=== PATIENT | male | born 1965 | race Two or more races ===

== ENCOUNTER 2018-11-14 11:56 | Emergency (ER) | payer MEDICAID ==
--- NOTE | 2018-11-14 12:48 | ED Physician Chart ---
ED Chief Complaint/HPI - Patient Information Date Seen:: 11/14/18 Time Seen:: 12:30 Chief Complaint:: bilateral leg pain History of Present Illness:: Patient fell down 3 steps one week ago. He is able to ambulate with use of a cane which he was using before he fell. Allergies:: Allergies Allergy/AdvReac Type Severity Reaction Status Date / Time No Known Allergies Allergy Verified 11/14/18 12:15 Vitals:: Vital Signs - 8 hr 11/14/18 12:21 Temp 98.2 F HR 75 RR 18 BP 149/89 O2 Sat % 97 Historian:: Patient, Family Member ED Review of Systems - Review of Systems General/Constitutional: No fever Skin: No skin lesions Head: No headache ENT: No earache Neck: No neck pain Cardio Vascular: No chest pain Pulmonary: No SOB GI: No nausea, No vomiting G/U: No dysuria Musculoskeletal: Bone or joint pain Psychiatric: No prior psych history, No depression, No anxiety Hematopoietic: No lymphadenopathy Allergic/Immuno: No urticaria Neurological: No syncope ED Past Medical History - Past Medical History Past Medical History: HTN, DM, Other (patient had colon cancer with metastasis to the liver diagnosed one year ago. He last received chemotherapy 6 months ago ) Family History: Diabetes Melitus, HTN Social History: Other (formerly smoked cigarets and drank alcohol) Surgical History: other (resection of colon ca) Medication: Reviewed ED Physical Exam - Physical Examination General/Constitutional: Awake, Alert, No distress Other Gen/Cons comments:: Chronically ill-appearing Head: Atraumatic Eyes: Lids, conjuctiva normal, PERRL Other Skin comments:: Hyperpigmentation of the skin ENMT: External ears, nose nl, Nasal exam nl Other ENMT comments:: 3/4 peridontal disease Neck: No nuchal rigidity Respiratory: Nl effort/Exclusion, Clear to Auscultation, No Wheeze/Rhonchi/Rales Cardio Vascular: RRR, No murmur, gallop, rubs GI: Normal BS's Other GI comments:: Midline surgical scar extending from the epigastrium to the infraumbilical area ; tender liver which extends 5 finger breadths inferior to right costal margin; 10 cm ventral hernia which extends from midline of the epigastrium to right upper quadrant. : No CVA tenderness Other Extremities comments:: 3 out of 4 pretibial pitting edema both lower legs Neuro/Psych: No focal deficits ED Labs/Radiology/EKG Results - Lab Results Results: Laboratory Tests 11/14/18 12:11 POC Glucose 188 H Laboratory Results WBC 6.0 Th/cmm (4.8-10.8) 11/14/18 12:48 RBC 3.74 Mil/cmm (4.30-5.70) L 11/14/18 12:48 Hgb 11.2 gm/dL (12-16) L 11/14/18 12:48 Hct 33.7 % (41.0-60) L 11/14/18 12:48 MCV 90.0 fl (80-99) 11/14/18 12:48 MCH 29.8 pg (26.0-30.0) 11/14/18 12:48 MCHC Differential 33.1 pg (28.0-36.0) 11/14/18 12:48 RDW 14.6 % (11.5-20.0) 11/14/18 12:48 Plt Count 208 Th/cmm (150-400) 11/14/18 12:48 MPV 8.9 fl 11/14/18 12:48 Neutrophils % 68.9 % (40.0-80.0) 11/14/18 12:48 Lymphocytes % 18.8 % (20.0-50.0) L 11/14/18 12:48 Monocytes % 9.1 % (2.0-10.0) 11/14/18 12:48 Eosinophils % 2.8 % (0.0-5.0) 11/14/18 12:48 Basophils % 0.4 % (0.0-2.0) 11/14/18 12:48 PT 9.9 SECONDS (9.5-11.5) 11/14/18 12:48 INR 0.95 (0.5-1.4) 11/14/18 12:48 PTT (Actin FS) 26.3 SECONDS (26.0-38.0) 11/14/18 12:48 Sodium 138 mEq/L (136-145) 11/14/18 12:48 Potassium 3.9 mEq/L (3.5-5.1) 11/14/18 12:48 Chloride 109 mEq/L (98-107) H 11/14/18 12:48 Carbon Dioxide 24.5 mEq/L (21.0-31.0) 11/14/18 12:48 Anion Gap 8.4 (7.0-16.0) 11/14/18 12:48 BUN 15 mg/dL (7-25) 11/14/18 12:48 Creatinine 0.7 mg/dL (0.7-1.3) 11/14/18 12:48 Est GFR ( Amer) > 60.0 ml/min (>90) 11/14/18 12:48 Est GFR (Non-Af Amer) > 60.0 ml/min 11/14/18 12:48 BUN/Creatinine Ratio 21.4 11/14/18 12:48 Glucose 189 mg/dL (70-105) H 11/14/18 12:48 POC Glucose 188 MG/DL (70 - 105) H 11/14/18 12:11 Calcium 7.7 mg/dL (8.6-10.3) L 11/14/18 12:48 - Radiology Results Results: The business systems technician reported no deep vein thrombosis. I gave the patient the choice of remaining here until the radiologist's final report is available or being discharged based on the business systems technician's report. He chose the latter stating that his legs had. been checked out previously for deep vein thrombosis and none were ever found ED Assessment - Assessment General Assessment: Patient is chronically ill with metastatic colon carcinoma but there is no acute problem which requires hospital admission. ED Septic Shock - . Is Septic Shock (SBP<90, OR Lactate>4 mmol\L) present?: No - <6hrs of presentation: Vital Signs: Vital Signs - 8 hr 11/14/18 12:21 Temp 98.2 F HR 75 RR 18 BP 149/89 O2 Sat % 97 ED Reassessment (Disposition) - Reassessment Reassessment Condition:: Unchanged - Diagnosis Diagnosis:: Colon cancer with liver metastasis; contusion lower legs; edema both lower legs - Aftercare/Follow up Instructions Aftercare/Follow-Up Instructions:: Refer to Discharge Instructions - Patient Disposition Discharge/Transfer:: Home Condition at Disposition:: Stable, Unchanged
[2018-11-14 12:53] LABS: % BASOPHILS 0.4 % (0.0-2.0); % EOSINOPHILS 2.8 % (0.0-5.0); % LYMPHOCYTES 18.8 % (20.0-50.0); % MONOCYTES 9.1 % (2.0-10.0); % NEUTROPHILS 68.9 % (40.0-80.0); EOSINOPHILE ABSOLUTE 0.2 Th/cmm (0.1-0.4); HEMATOCRIT 33.7 % (41.0-60); HEMOGLOBIN 11.2 gm/dL (12-16); LYMPHOCYTE ABSOLUTE 1.1 Th/cmm (1.5-3.0); MEAN CORPUSCULAR HEMOGLOBIN 29.8 pg (26.0-30.0); MEAN CORPUSCULAR HGB CONC 33.1 pg (28.0-36.0); MONOCYTE ABSOLUTE 0.5 Th/cmm (0.3-1.0); NEUTROPHILE ABSOLUTE 4.2 Th/cmm (1.8-8.0); PLATELET COUNT 208 Th/cmm (150-400); RED BLOOD COUNT 3.74 Mil/cmm (4.30-5.70); RED CELL DISTRIBUTION WIDTH 14.6 % (11.5-20.0)
[2018-11-14 13:09] LABS: INR 0.95 (0.5-1.4)
[2018-11-14 13:14] LABS: ANION GAP 8.4 (7.0-16.0); BUN - UREA NITROGEN 15 mg/dL (7-25); CALCIUM SERUM 7.7 mg/dL (8.6-10.3); CARBON DIOXIDE 24.5 mEq/L (21.0-31.0); CHLORIDE 109 mEq/L (98-107); CREATININE - SERUM 0.7 mg/dL (0.7-1.3); GFR AFRICAN-AMERICAN > 60.0 ml/min (>90); GFR NON AFRICAN-AMERICAN > 60.0 ml/min; GLUCOSE 189 mg/dL (70-105); POTASSIUM SERUM 3.9 mEq/L (3.5-5.1); SODIUM SERUM 138 mEq/L (136-145)
[2018-11-15 08:08] LABS: A1C 6.7 % (4.8-5.6)
--- NOTE | 2018-11-15 09:16 | Diagnostic Imaging Report ---
Bilateral lower extremity Doppler venous ultrasound exam HISTORY: Pain/swelling Sonographic sector images were obtained through the deep venous systems of both legs. Associated Doppler data was obtained. The exam demonstrates patency of the common femoral, superficial femoral, popliteal, and posterior tibial veins bilaterally. Specifically, no thrombus is seen. There are normal compressibility and augmentation responses. IMPRESSION: Negative exam for deep vein thrombophlebitis.
== END 2018-11-14 15:29 | disposition home or self-care (01) ==
LOC: ER 11:56
DX: S80.12XA Contusion of left lower leg, initial encounter (principal); S80.11XA Contusion of right lower leg, initial encounter; R60.0 Localized edema; C78.7 Secondary malignant neoplasm of liver and intrahepatic bile duct; C18.9 Malignant neoplasm of colon, unspecified; I10 Essential (primary) hypertension; E11.9 Type 2 diabetes mellitus without complications; Z87.891 Personal history of nicotine dependence; W18.39XA Other fall on same level, initial encounter; Y93.89 Activity, other specified; Y92.89 Other specified places as the place of occurrence of the external cause; Y99.8 Other external cause status
CPT/HCPCS: 36415-UA; 80048-TC; 82948-90; 83036-90; 85025-TC; 85610-TC; 85730-TC; 93970-TC-50